=== PATIENT | female | born 1990 | race Asian ===

== ENCOUNTER 2020-09-21 07:50 | Day surgery (SDC) | payer OTHER ==
[2020-09-21 07:56] LABS: Specific Gravity 1.025 (1.005-1.030)
[2020-09-21] MEDS ORDERED: CEFAZOLIN/SWI 1gm 1 GM/10 ML SYR ONE (08:42)
[2020-09-21] MEDS ORDERED: NS 0.9% VIAL 20 ML ONE (08:44)
[2020-09-21] MEDS ORDERED: CEFAZOLIN SODIUM 1 GM/VIAL ONE ×2 (08:44→14:08)
[2020-09-21] MEDS ORDERED: GENTAMICIN SULF 80 MG/2ML INJ ONE (08:45)
[2020-09-21] MEDS ORDERED: LIDOCAINE 1% W/EPI 1:100,000 MDV 20 ML VIAL ONE (08:45)
[2020-09-21] MEDS ORDERED: Mastisol Adhesive Liq ONE (08:45)
[2020-09-21] MEDS ORDERED: BACITRACIN 50000 UNIT VIAL ONE (08:45)
[2020-09-21] MEDS ORDERED: Ringers Lactate 1,000 ML IV ONE (08:45)
[2020-09-21] MEDS: Ringers Lactate 1,000 ML IV ONE ×2 (08:55→09:00)
[2020-09-21] MEDS ORDERED: SCOPOLAMINE HYDROBROMIDE PATCH TD ONE (09:18)
[2020-09-21 10:23] VITALS: O2SAT 100
[2020-09-21] MEDS ORDERED: MIDAZOLAM HCL 2 MG/2 ML INJ ONE (11:53)
[2020-09-21] MEDS ORDERED: FENTANYL CITR 250 MCG/5 ML ONE (11:53)
[2020-09-21] MEDS ORDERED: KETOROLAC 30 MG/ML INJ ONE (11:53)
[2020-09-21] MEDS ORDERED: VECURONIUM 10 MG/VIAL IV ONE (11:53)
[2020-09-21] MEDS ORDERED: propofoL 200 MG/20 ML VIAL IV ONE (11:53)
[2020-09-21] MEDS ORDERED: NS 0.9% VIAL 10 ML ONE ×2 (11:53→14:08)
[2020-09-21] MEDS ORDERED: dexAMETHasone 10 MG/ML VIAL ONE (11:53)
[2020-09-21] MEDS ORDERED: ONDANSETRON 4 MG/2 ML VIAL ONE ×2 (11:53→15:35)
[2020-09-21] MEDS ORDERED: LIDOCAINE 2% MPF 5 ML VIAL ONE (11:53)
[2020-09-21] MEDS ORDERED: ROCURONIUM 50 MG/5 ML VIAL IV ONE (11:53)
[2020-09-21] MEDS ORDERED: NEOSTIGMINE 1 MG/ML -5 ML ONE (14:16)
[2020-09-21] MEDS ORDERED: GLYCOPYRROLATE 0.2 MG/ML SYR ONE (14:17)
[2020-09-21] MEDS: HYDROMORPHONE HCL 1 MG/ML INJ ONE ×2 (14:38→14:57)
[2020-09-21 15:04] VITALS: TEMP 97.5
[2020-09-21] MEDS ORDERED: HYDROCODONE/APAP 7.5/325 MG TAB ONE (15:43)
[2020-09-21 16:43] VITALS: BP 117/79
--- NOTE | 2020-09-22 02:00 | OP ---
Surgeon: Artem Zimmerman MD Preoperative Diagnosis: Breast descent and malpositioned implant. Postoperative Diagnosis: Breast descent and malpositioned implant. Procedure: Implant plication and breast lift. Anesthesia: General. Procedure In Detail: After satisfactory induction of general anesthesia, chest was prepped with DuraPrep, dry sterile drapes were applied in the usual manner. A 5 cm template was used to outline the right and left areola. the incision was made and the skin was de-epithelialized with a dermabrader after zigzag incision was made around the areola and electrocautery was used to dissect down. The flap was elevated in the subcutaneous plane level towards the pec major muscle except for the medial and lateral inferiorly. The right side was done first. After this was done, the patient then had the incision made laterally with electrocautery. Implant was removed. According to the patient, a 425 silicone was then placed on the back table and then the pocket was plicated with a running 2-0 Ethibond vertically as well as horizontally from new inframammary fold in the anterior axillary line. Implant was then replaced and then the closure was with 2-0 Mersilene and then the 3-0 Vicryl was used to close the pocket. The wound was irrigated with dilute Betadine solution. The plication was performed of the breast lift. This was done by passing the straps that were elevated. Straps were elevated at 12 o'clock, 1:30 and 3 o'clock position. These straps were then passed horizontally in and out the breast horizontally and vertically. The Velcro strap was then brought out laterally. The horizontal strap was brought out medially and then passed inferiorly. The Verticle strap was passed laterally and they were used to the opposite straps. Ethibond sutures and then the remaining portion of the strap was then passed down to the serratus muscle origin and then sewn back to itself with 2-0 Ethibond. Left side done in mirror-image manner. The 10 RUTH was brought out of the axilla and sewn in place with 2-0 silk and the wound was closed with purse- string of the CV2 [place] of interrupted 3-0 PDS and running 4-0 PDS. Dressed with tinc of benzoin, Steri-Strips, followed by Esmarch, fluffs, and Slick wrap. The patient tolerated procedure well and returned to Recovery. GH/MODL Voice ID: [id number] Report ID: [id number]
== END 2020-09-21 16:12 | disposition home or self-care (01) ==
LOC: OR 07:50
PROVIDERS: ATTEND Specialist
PROC: 0HSV0ZZ Reposition Bilateral Breast, Open Approach (ICD-10-PCS; 2020-09-21)
PROC: 0HRV0JZ Replacement of Bilateral Breast with Synthetic Substitute, Open Approach (ICD-10-PCS; principal; 2020-09-21 09:00)
DX: N64.81 Ptosis of breast (principal); T85.42XA Displacement of breast prosthesis and implant, initial encounter
CPT/HCPCS: 81025; 19316; 19340; J2704; J1580; J2250; J1100; J1170; J2710; J0690 ×3; J7120 ×2; J2405; J3010